=== PATIENT | male | born 1995 | race Caucasian/White ===

== ENCOUNTER 2024-01-10 20:12 | Emergency (ER) | payer MEDICAID ==
[~2024-01-10] VITALS: Ht 180.3 cm; Wt 82.6 kg
== END 2024-01-10 23:00 | disposition home or self-care (01) ==
LOC: ED 20:12
DX: S46.911A Strain of unspecified muscle, fascia and tendon at shoulder and upper arm level, right arm, initial encounter (principal); X58.XXXA Exposure to other specified factors, initial encounter; Y93.89 Activity, other specified; Y92.89 Other specified places as the place of occurrence of the external cause; Y99.8 Other external cause status

== ENCOUNTER 2024-01-19 20:47 | Emergency (ER) | payer SELFPAY ==
[~2024-01-19] VITALS: Ht 170.1 cm; Wt 82.6 kg
[2024-01-19] MEDS ORDERED: VIBRAMYCIN100 MG PO (21:35)
[2024-01-19] MEDS ORDERED: Doxycycline Hyclate 100 MG CAP PO ONE (21:40)
== END 2024-01-19 21:55 | disposition home or self-care (01) ==
LOC: ED 20:47
DX: L03.113 Cellulitis of right upper limb (principal); L02.413 Cutaneous abscess of right upper limb